=== PATIENT | female | born 1985 | race Caucasian/White ===

== ENCOUNTER 2019-06-06 15:55 | Emergency (ER) | payer OTHER ==
[2019-06-06 16:08] VITALS: BP 125/76
--- NOTE | 2019-06-06 16:26 | UC ---
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 She woke this morning feeling short of breath. During the course of her day her dyspnea increased to the point of having trouble speaking to her clients. She felt as though her heart was racing and she checked her pulse. Her pulse was around 140. She estimates it stayed this high for at least 2 hours. She is feeling better now that she is here. She denies any chest pain. She denies any calf pain. She denies any syncope or near syncope. - History of Current Complaint Chief Complaint: UCChestPain Stated Complaint: FAST HEART RATE Time Seen by Provider: 06/06/19 15:59 Hx Obtained From: Patient Onset/Duration: Gradual Onset, Lasting Hours Timing: Constant Current Severity: Mild Dyspnea At: Exertion Aggravating Factors: Nothing Associated Signs & Symptoms: Positive: Edema - sligh, Other - [place] shortly side palipitations/increased HR. Negative: Cough (Productive), Cough ( Nonproductive), Cough (Bloody Sputum), Wheezing, Chest Pain w/Cough, Chest Pain Unrelated to Cough, Fever, Chills, Diaphoresis, Nasal Congestion, Dizzy, Calf Pain/Swelling - Risk Factors Pulmonary Embolism: - Allergy/Home Medications Allergies/Adverse Reactions: Allergies Allergy/AdvReac Type Severity Reaction Status Date / Time No Known Allergies Allergy Verified 06/06/19 16:00 Home Medications: Home Medications Pnv No.95/Ferrous Fum/Folic AC [ Caplet] 1 tab PO DAILY 06/06/19 [ History Confirmed 06/06/19] PMH/Surg Hx/FS Hx/Imm Hx Previously Healthy: Yes - Surgical History Surgical History: None - Family History Known Family History: Positive: Non-Contributory - Social History Alcohol Use: None Substance Use Type: Marijuana Substance Use Comment - Amount & Last Used: States she has not smoke in past 5 days Smoking Status (MU): Light Every Day Tobacco Smoker Review of Systems All Other Systems Reviewed And Are Negative: Yes Constitutional: Positive: Negative Skin: Positive: Negative Eyes: Positive: Negative ENT: Positive: Negative Respiratory: Positive: Shortness Of Breath Cardiovascular: Positive: Palpitations Gastrointestinal: Positive: Negative Genitourinary: Positive: Negative Motor: Positive: Negative Neurovascular: Positive: Negative Musculoskeletal: Positive: Negative Neurological: Positive: Negative Psychological: Positive: Negative Physical Exam Triage Information Reviewed: Yes Appearance: Well-Appearing, No Pain Distress, Well-Nourished Vital Signs: Initial Vital Signs Temp 97.5 F 06/06/19 16:02 Pulse 106 06/06/19 16:02 Resp 18 06/06/19 16:02 BP 125/76 06/06/19 16:02 Pulse Ox 97 06/06/19 16:02 Vital Signs Reviewed: Yes Eye Exam: Normal Eyes: Positive: Conjunctiva Clear ENT: Positive: Hearing grossly normal, Uvula midline. Negative: Nasal congestion, Nasal drainage, Trismus, Hoarse voice Dental Exam: Normal Neck: Positive: Supple, Nontender Respiratory: Positive: Lungs clear, Normal breath sounds, No respiratory distress, No accessory muscle use, Other: - sligh increased WOB Cardiovascular: Positive: RRR, No Murmur, Tachycardia Abdomen Description: Positive: Other: - Gravid uterus Musculoskeletal: Positive: Edema @ - tr pre tibial Neurological: Positive: Alert Psychological Exam: Normal Skin Exam: Normal Diagnostics - EKG Cardiac Rate: Tachycardia Cardiac Rhythm: Sinus: Normal ST Segment: Normal Shortness of Breath Dx - Course Course Of Treatment: report given to Dr. Betancourt to [facility] [place] [facility] via EMS - Differential Dx/Diagnosis Provider Diagnosis: Sinus tachycardia, Dyspnea Discharge ED - Sign-Out/Discharge Documenting (check all that apply): Patient Departure All imaging exams completed and their final reports reviewed: No Studies - Discharge Plan Condition: Stable Disposition: TRANS HIGHER LVL OF CARE FAC Referrals: No Primary Care Phys,NOPCP [Primary Care Provider] - - Billing Disposition and Condition Condition: STABLE Disposition: Trans Higher Lvl of Care Fac
== END 2019-06-06 16:35 | disposition short-term general hospital (02) ==
LOC: UCEAST 15:55
DX: O99.89 Other specified diseases and conditions complicating pregnancy, childbirth and the puerperium (principal); F17.290 Nicotine dependence, other tobacco product, uncomplicated; R06.02 Shortness of breath; R00.0 Tachycardia, unspecified; R06.00 Dyspnea, unspecified; Z3A.35 35 weeks gestation of pregnancy
CPT/HCPCS: 93005; 99213; G0463

== ENCOUNTER 2019-06-06 17:00 | Emergency (ER) | payer OTHER ==
[2019-06-06 17:46] LABS: ABS Basophils 0.1 10^3/ul (0-0.2); ABS Eosinophils 0.1 10^3/ul (0-0.6); ABS Lymphocytes 2.8 10^3/ul (1.0-4.8); ABS Neutrophils 12.3 10^3/ul (1.5-7.7); Eosinophil % 0.9 %; Hematocrit 33 % (35-47); Hemoglobin 11.5 g/dL (12.0-16.0); Mean Corpuscular HGB Conc 35 g/dL (31-36); Mean Corpuscular Hemoglobin 33 pg (27-31); Mean Corpuscular Volume 92 fL (80-97); Mean Platelet Volume 7.7 fL (7.4-10.4); Platelet Count 235 10^3/uL (150-450); Red Blood Count 3.52 10^6 /uL (3.70-4.87); Red Cell Distribution Width 13 % (10-15); White Blood Count 16.3 10^3/uL (3.5-10.8)
[2019-06-06 18:01] LABS: INR 0.99 (0.82-1.09)
[2019-06-06 18:10] LABS: Albumin 3.3 g/dL (3.2-5.2); Albumin/Globulin Ratio 1.3 (1-3); BUN/Creatinine Ratio 18.8 (8-20); Calcium 8.8 mg/dL (8.6-10.3); EGFR African American 180.2 (>60); EGFR Non-African American 148.9 (>60); Globulin 2.5 g/dL (2-4); Potassium 3.4 mmol/L (3.5-5.0); Total Bilirubin 0.3 mg/dL (0.2-1.0); Total Protein 5.8 g/dL (6.4-8.9)
[2019-06-06 18:12] LABS: Troponin I 0.01 ng/mL (<0.04)
[2019-06-06] MEDS ORDERED: Iohexol 350* (CONTRAST) 500 ML MDV IV ONE (18:50)
--- NOTE | 2019-06-06 19:56 | ED ---
Shortness of Breath - HPI Summary HPI Summary: 33 year old female reports to the ED by EMS with a chief complaint of shortness of breath starting when she woke up this morning at 0800. She is 35 weeks in her 3rd . Reports fast heart rate, difficulty sleeping, heaviness in limbs, and chronically sore calves. She denies any pain, trauma to her chest, nausea, vomiting, or vaginal bleeding. No PSHx. Smokes marijuana, but has not smoked in 4 days. Smokes tobacco. Medications reviewed. Allergies noted. - History of Current Complaint Chief Complaint: EDShortnessOfBreath Time Seen by Provider: 06/06/19 17:10 Hx Obtained From: Patient Onset/Duration: Sudden Onset, Lasting Hours, Worse Since - woke up this morning Timing: Constant Current Severity: Moderate Dyspnea At: Exertion Aggravating Factors: Movement - Allergy/Home Medications Allergies/Adverse Reactions: Allergies Allergy/AdvReac Type Severity Reaction Status Date / Time No Known Allergies Allergy Verified 06/06/19 16:00 PMH/Surg Hx/FS Hx/Imm Hx Endocrine/Hematology History: Denies: Hx Diabetes Cardiovascular History: Denies: Hx Hypertension History: Denies: Hx Renal Disease Infectious Disease History: No Infectious Disease History: Denies: Traveled Outside the [place] in Last 30 Days - Family History Known Family History: Positive: Non-Contributory - Social History Alcohol Use: None Substance Use Type: Reports: Marijuana Substance Use Comment - Amount & Last Used: weekly use Smoking Status (MU): Light Every Day Tobacco Smoker Review of Systems Positive: Other - tachycardia Positive: Shortness Of Breath Negative: Vomiting, Nausea Negative: other - vaginal bleeding Positive: Other - extremities feel heavy Neurological: Other - difficulty sleeping All Other Systems Reviewed And Are Negative: Yes Physical Exam - Summary Physical Exam Summary: Constitutional: Well-developed, Well-nourished, Alert. . (-) Distressed Skin: Warm, Dry HENT: Normocephalic; Atraumatic Eyes: Conjunctiva normal Neck: Musculoskeletal ROM normal neck. (-) JVD, (-) Stridor, (-) Tracheal deviation Cardio: Rhythm regular, rate normal, Heart sounds normal; Intact distal pulses; Radial pulses are 2+ and symmetric. (-) Murmur Pulmonary/Chest wall: Effort normal. (-) Respiratory distress, (-) Wheezes, (-) Rales Abd: Soft, (-) tenderness, (-) Distension, (-) Guarding, (-) Rebound Musculoskeletal: (-) Edema Lymph: (-) Cervical adenopathy Neuro: Alert, Oriented x3 Psych: Mood and affect Normal Triage Information Reviewed: Yes Vital Signs On Initial Exam: Initial Vitals Temp Pulse Resp BP Pulse Ox 98.7 F 125 16 129/90 99 06/06/19 17:05 06/06/19 17:05 06/06/19 17:05 06/06/19 17:05 06/06/19 17:05 Vital Signs Reviewed: Yes Procedures - Sedation Patient Received Moderate/Deep Sedation with Procedure: No Diagnostics - Vital Signs Vital Signs Temp Pulse Resp BP Pulse Ox 06/06/19 19:07 91 13 99 06/06/19 18:36 94 19 118/63 97 06/06/19 18:06 92 16 117/64 98 06/06/19 18:00 93 24 99 06/06/19 17:36 103 20 108/66 98 06/06/19 17:18 112 21 97 06/06/19 17:06 108 23 129/90 97 06/06/19 17:05 98.7 F 125 16 129/90 99 - Laboratory Lab Results: Lab Results 06/06/19 06/06/19 06/06/19 Range/Units 17:34 17:34 17:34 WBC 16.3 H (3.5-10.8) 10^3/uL RBC 3.52 L (3.70-4.87) 10^6 /uL Hgb 11.5 L (12.0-16.0) g/dL Hct 33 L (35-47) % MCV 92 (80-97) fL MCH 33 H (27-31) pg MCHC 35 (31-36) g/dL RDW 13 (10-15) % Plt Count 235 (150-450) 10^3/uL MPV 7.7 (7.4-10.4) fL Neut % (Auto) 75.5 % Lymph % (Auto) 17.0 % Moca % (Auto) 6.1 % Eos % (Auto) 0.9 % Baso % (Auto) 0.5 % Absolute Neuts (auto) 12.3 H (1.5-7.7) 10^3/ul Absolute Lymphs (auto) 2.8 (1.0-4.8) 10^3/ul Absolute Monos (auto) 1.0 H (0-0.8) 10^3/ul Absolute Eos (auto) 0.1 (0-0.6) 10^3/ul Absolute Basos (auto) 0.1 (0-0.2) 10^3/ul Absolute Nucleated RBC 0.0 10^3/ul Nucleated RBC % 0.0 INR (Anticoag Therapy) 0.99 (0.82-1.09) D-Dimer, Quantitative (Less Than 230) ng/mL Sodium 135 (135-145) mmol/L Potassium 3.4 L (3.5-5.0) mmol/L Chloride 106 (101-111) mmol/L Carbon Dioxide 21 L (22-32) mmol/L Anion Gap 8 (2-11) mmol/L BUN 9 (6-24) mg/dL Creatinine 0.48 L (0.51-0.95) mg/dL Est GFR ( Amer) 180.2 (>60) Est GFR (Non-Af Amer) 148.9 (>60) BUN/Creatinine Ratio 18.8 (8-20) Glucose 101 H (70-100) mg/dL Calcium 8.8 (8.6-10.3) mg/dL Total Bilirubin 0.30 (0.2-1.0) mg/dL AST 17 (13-39) U/L ALT 13 (7-52) U/L Alkaline Phosphatase 140 H (34-104) U/L Troponin I 0.01 (<0.04) ng/mL Total Protein 5.8 L (6.4-8.9) g/dL Albumin 3.3 (3.2-5.2) g/dL Globulin 2.5 (2-4) g/dL Albumin/Globulin Ratio 1.3 (1-3) 06/06/ Range/Units 17:34 WBC (3.5-10.8) 10^3/uL RBC (3.70-4.87) 10^6 /uL Hgb (12.0-16.0) g/dL Hct (35-47) % MCV (80-97) fL MCH (27-31) pg MCHC (31-36) g/dL RDW (10-15) % Plt Count (150-450) 10^3/uL MPV (7.4-10.4) fL Neut % (Auto) % Lymph % (Auto) % Moca % (Auto) % Eos % (Auto) % Baso % (Auto) % Absolute Neuts (auto) (1.5-7.7) 10^3/ul Absolute Lymphs (auto) (1.0-4.8) 10^3/ul Absolute Monos (auto) (0-0.8) 10^3/ul Absolute Eos (auto) (0-0.6) 10^3/ul Absolute Basos (auto) (0-0.2) 10^3/ul Absolute Nucleated RBC 10^3/ul Nucleated RBC % INR (Anticoag Therapy) (0.82-1.09) D-Dimer, Quantitative 291 H (Less Than 230) ng/mL Sodium (135-145) mmol/L Potassium (3.5-5.0) mmol/L Chloride (101-111) mmol/L Carbon Dioxide (22-32) mmol/L Anion Gap (2-11) mmol/L BUN (6-24) mg/dL Creatinine (0.51-0.95) mg/dL Est GFR ( Amer) (>60) Est GFR (Non-Af Amer) (>60) BUN/Creatinine Ratio (8-20) Glucose (70-100) mg/dL Calcium (8.6-10.3) mg/dL Total Bilirubin (0.2-1.0) mg/dL AST (13-39) U/L ALT (7-52) U/L Alkaline Phosphatase (34-104) U/L Troponin I (<0.04) ng/mL Total Protein (6.4-8.9) g/dL Albumin (3.2-5.2) g/dL Globulin (2-4) g/dL Albumin/Globulin Ratio (1-3) Result Diagrams: 06/06/19 17:34 06/06/19 17:34 Lab Statement: Any lab studies that have been ordered have been reviewed, and results considered in the medical decision making process. - CT Chest/ Thorax CTA CT Interpretation Completed By: Radiologist Summary of CT Findings: No evidence of PE or other acute chest pathology. An ED physician has reviewed this report. Course/Dx - Course Course Of Treatment: Patient is here with shortness of breath and tachycardia that started this morning. Patient's symptoms are severe enough that she cannot manage her work today. Patient was tachycardic at work, at urgent care, and upon arrival here. Patient is very high risk for PE given her status. Patient had no evidence of DVT on exam. [facility] was called and they recommended CTA if our suspicion was high enough which it was. Patient had a CTA which showed no PE. Patient was encouraged to follow-up with her [facility] [employer]. - Diagnoses Provider Diagnoses: Shortness of breath, , Tachycardia Discharge ED - Sign-Out/Discharge Documenting (check all that apply): Patient Departure - dc - Discharge Plan Condition: Stable Disposition: HOME Patient Education Materials: (ED), Tachycardia (ED), Shortness of Breath (ED) Referrals: [facility] [Outside] Additional Instructions: Ct shows that you dont have a blood clot in your lungs. Return if you have chest pain, increased shortness of breath, or other worsened symptoms. Follow up with your [facility] in 1-3 days. - Billing Disposition and Condition Condition: STABLE Disposition: Home - Attestation Statements Document Initiated by Fanyibe: Yes Documenting Scribe: Zacarias Ford Provider For Whom Vishal is Documenting (Include Credential): Antonio Betancourt MD. Scribe Attestation: Zacarias Iniguez scribed for Antonio Betancourt MD. on 06/06/19 at 2106. Scribe Documentation Reviewed: Yes Provider Attestation: The documentation as recorded by the Zacarias hightower accurately reflects the service I personally performed and the decisions made by Antonio carranza MD. Status of Scribe Document: Viewed
[2019-06-06 21:11] VITALS: BP 121/78
== END 2019-06-06 20:55 | disposition home or self-care (01) ==
LOC: ED 17:00
DX: O26.893 Other specified pregnancy related conditions, third trimester (principal); R06.02 Shortness of breath; R00.0 Tachycardia, unspecified; O99.333 Smoking (tobacco) complicating pregnancy, third trimester; F17.290 Nicotine dependence, other tobacco product, uncomplicated; Z3A.35 35 weeks gestation of pregnancy
CPT/HCPCS: 36415; 71275; 80053; 84484; 85025; 85379; 85610; 99282; Q9967

== ENCOUNTER 2019-07-15 14:06 | Inpatient (IN) | payer OTHER ==
[2019-07-15] MEDS ORDERED: Lactated Ringers 1000 ML Bag* 1,000 ML IV ONE (15:30)
[2019-07-15] MEDS ORDERED: Buffered Lidocaine 1% SYRIN* 1 ML/SYRINGE INTRADERM ONE (15:30)
--- NOTE | 2019-07-15 15:41 | HP ---
General Information - Reason for Visit 33yo, , IUP@40+1, here for an elective induction - General Information Maternal Age: 33 Grav: 5 Para: 2 SAB: 0 IEA: 2 Estimated Due Date: 07/14/19 Determined By: LMP Gestational Age in Weeks/Days: 40+1 Maternal Blood Type and Rh: A Positive - Results this Serology/RPR Result: Non-Reactive Rubella Result: Immune HBsAg Result: Negative HIV Result: Negative GBS Culture Result: Negative Past Medical History Delivery History: Hx Uncomplicated Vaginal Delivery Past Medical History Comment: hypercholesterolemia Pertinent Past Surgical History: None Family History Comment: Mother: thyroid disease PGF: MS, CHF MGF: d/t pancreatic cancer - Antepartal Records Antepartal Records: Reviewed, Complicated by: - SS increased risk of T21, normal NIPT; +tobacco use; +thc use Review of Systems Constitutional: Comfortable CV Complaint: No Respiratory: Shortness of Breath: No Gastrointestinal: No Nausea/Vomiting, Normal Bowel Movement Genitourinary: No Dysuria, No Bleeding, No Leaking Fluid Musculoskeletal: No Complaint, No Epigastric Pain, Contractions Neurological: No Headache, No Visual Changes Movement: Normal Exam Allergies/Adverse Reactions: Allergies No Known Allergies Allergy (Verified 07/15/19 15:41) temp 97.8, HR 105, RR 18, BP 132/74, O2 99 - Exam Breast: Breast Exam Deferred CVA: No CVA Tenderness Extremities: No Edema Heart: Normal Rhythm/Heart Sounds HEENT: No Significant Findings Lungs: Clear Bilaterally Rectal: Rectal Exam Deferred Reflexes: DTR 2+ - Abdominal Exam Abdomen Exam: Non-Tender - Ultrasound/Biophysical Profile Ultrasound Status: Not Done Targeted Exam Findings Estimated Weight: 8.5lbs Cervical Exam: Fingertip Effacement: <50% Station: -2 Presenting Part: Vertex Membrane Status: Intact Bleeding/Discharge: None EFM Findings - External Monitor Findings Baseline Heart Rate: 150 External Monitor Findings: Accelerations Present, No Pattern of Variable or Late Decelerations, Variability Moderate, Accelerations Absent External Monitor Findings Comment: No evidence of metabolic acidemia Contractions: Irregular Assessment/Plan - Assessment 33yo, , IUP@40+1 here for an elective induction GBS negative, A+ Last in 2007 No evidence of metabolic acidemia Occasional contraction, good resting tone PARQ discussion about cytotec for cervical ripening - Plan Plan: Induction, Cervical Ripening, Admit - Anticipate Vaginal Delivery Plan Comment: First dose of cytotec now monitoring per protocol pain meds prn anticipate progression to active labor - Date/Time of Admission Date of Admission: 07/15/19 Time of Admission: 14:00
[2019-07-15] MEDS: Misoprostol TAB* 100 MCG PO SCH (15:57)
[2019-07-15] MEDS ORDERED: Lactated Ringers 1000 ML Bag* 1,000 ML IV SCH (16:00)
[2019-07-15 18:52] LABS: Urine Benzodiazepine Screen None Detected (None Detect); Urine Opiates Screen None Detected (None Detect)
--- NOTE | 2019-07-15 20:06 | PN ---
Progress Note - Progress Note Date of Service: 07/15/19 Note: S: pt is resting in bed, breathing through contractions. O: 136/78, HR 79, temp 98 FHR 130, variable decels, moderate variability Contractions q2-3 mins VE: 2/50/-1, AROM, clear fluid A: IUP@40+1 in early labor No evidence of metabolic acidemia Regular contractions P: PARQ discussion about AROM, pt and in agreement with plan. Anticipate progression to active labor and
--- NOTE | 2019-07-16 00:19 | PN ---
Progress Note - Progress Note Date of Service: 07/16/19 Note: S: pt is resting in bed, breathing through contractions. using nitrous oxide. O: FHR 130, variable decels, moderate variability Contractions q2-3 mins VE: 4.5/80/-1, clear fluid A: IUP@40+1 in early labor No evidence of metabolic acidemia Regular contractions P: Pt to get in tub, coping well anticipate
--- NOTE | 2019-07-16 01:27 | PN ---
Progress Note - Progress Note Date of Service: 07/16/19 Note: pt is writhing in bed with contractions. requesting an epidural. contractions q2 mins, good resting tone VE: 6/100/-1, clear fluid RN to start IV/fluids anticipate progression to
[2019-07-16 01:44] LABS: ABS Basophils 0.1 10^3/ul (0-0.2); ABS Eosinophils 0.2 10^3/ul (0-0.6); ABS Lymphocytes 3.3 10^3/ul (1.0-4.8); ABS Monocytes 1.5 10^3/ul (0-0.8); Eosinophil % 0.8 %; Hematocrit 34 % (35-47); Hemoglobin 11.9 g/dL (12.0-16.0); Lymphocyte % 15.1 %; Mean Corpuscular HGB Conc 35 g/dL (31-36); Mean Corpuscular Hemoglobin 32 pg (27-31); Mean Corpuscular Volume 92 fL (80-97); Mean Platelet Volume 8.1 fL (7.4-10.4); Platelet Count 240 10^3/uL (150-450); Red Cell Distribution Width 14 % (10-15)
[2019-07-16] MEDS ORDERED: OBEPIDURAL* 250 ML EPIDURAL ONE (01:45)
[2019-07-16] MEDS ORDERED: Bupivacaine 0.25% SDV PF* 10 ML VIAL INJ ONE ×2 (02:07→08:33)
--- NOTE | 2019-07-16 02:10 | PN ---
Progress Note - Progress Note Date of Service: 07/16/19 Note: pt is writhing in bed with contractions. contractions q2 mins, good resting tone VE: 7/100/-1, clear fluid RN to start IV/fluids Anesthesia at bedside
[2019-07-16] MEDS ORDERED: Phenylephrine 40 MCG/ML SYRINGE IV PUSH PRN ×2 (02:39)
[2019-07-16] MEDS ORDERED: Lactated Ringers 1000 ML Bag* 1,000 ML IV ONE (02:39)
[2019-07-16] MEDS ORDERED: Sodium Citrate/Citric Acid* 15 ML UDC PO PRN (02:39)
[2019-07-16] MEDS ORDERED: Famotidine TAB* 20 MG PO PRN (02:39)
[2019-07-16] MEDS ORDERED: Lactated Ringers 1000 ML Bag* 1,000 ML IV SCH ×2 (03:00→15:00)
[2019-07-16] MEDS ORDERED: OBEPIDURAL* 250 ML EPIDURAL SCH (03:00)
--- NOTE | 2019-07-16 03:16 | PN ---
Progress Note - Progress Note Date of Service: 07/16/19 Note: Pt comfortable with epidural. Called to bedside by RN for decel. Anesthesia also at bedside. FHR auscultated in 90s, FSE placed. Phenylephrine given for low BP following epidural. BP stabilized. VE: 7.5/90/0, vtx L. MD Milady called Early decels persist with contractions despite position changes, O2, and fluids. Full recovery of FHR following contraction with moderate variability. Low suspicion for acidemia at this time. Will monitor closely. inhouse, reviewed strip, aware of pt condition
[2019-07-16] MEDS ORDERED: Terbutaline INJ* 1 MG/ML VIAL SUBCUT ONE (03:21)
[2019-07-16] MEDS ORDERED: Terbutaline INJ* 1 MG/ML VIAL ONE (03:22)
--- NOTE | 2019-07-16 04:34 | PN ---
Progress Note - Progress Note Date of Service: 07/16/19 Note: Pt comfortable with epidural. Feeling more pressure with contractions. VE: 8/90/0, vtx, swollen anterior cervix Will place pt in runner's lunge FHR 125, moderate variability, early decels Early decels persist with contractions despite position changes, O2, and fluids. Full recovery of FHR following contraction with moderate variability. Low suspicion for acidemia at this time. Will monitor closely. MD GRAHAM aware.
--- NOTE | 2019-07-16 06:54 | PN ---
Progress Note - Progress Note Date of Service: 07/16/19 Note: S: pt is resting in bed, now using epidural dose button for complete pain relief. Feeling pressure with contractions. O: BP 103/73, HR 109, temp 99.7 FHR 130, moderate variability, +accels, occasional early decel Contractions q3-4 mins VE: 8.5/90/0, thin meconium, swelling of anterior rim of cervix A: IUP@40+1 in active labor VSS No evidence of metabolic acidemia - FSE in place Small cervical change Regular contractions P: Positioned in left runners lunge. Position changes every 15-20 minutes. After runners lunge consider side-lying release Anticipate progression to Report given to Chuckie Pina CNM who will assume care at 0800.
[2019-07-16] MEDS ORDERED: diPHENhydraMINE IV* 50 MG/ML 1 ml VIAL (BENADRYL) IV ONE (08:30)
--- NOTE | 2019-07-16 08:31 | PN ---
Progress Note - Progress Note Date of Service: 07/16/19 Note: S: Rocking back in forth on the bed in side-lying position Feeling exhausted. Vocalizing with UCs. Reports more pain with contractions O: B/P: 129/90, P: 107, R: 20, T: 99.0 FHR: Baseline 125, moderate variability, some early decels, some deep variable decels with UCs UCs: q 3-5 min, moderate to palpation VE: 9 cm, swollen anterior lip. Blood-tinged fluid Epidural tubing has come apart on inspection A: IUP at 40 2/7 weeks Category II FHR, doubt metabolic acidemia in presence of moderate variability. Dr. Salomon in house and aware Prolonged active phase of labor P: PARQ discussion re: IV benadryl and possibly ice against the cervix. Dr. Sandoval paged; somebody will be down to assess epidural Encouraged hands-knees positioning Reassess in one hour or sooner PRN Anticipate SVB
[2019-07-16] MEDS ORDERED: Oxytocin in LR* 20 UNITS/1,000 ML BAG IVPB SCH ×2 (10:30→15:00)
--- NOTE | 2019-07-16 10:30 | PN ---
Progress Note - Progress Note Date of Service: 07/16/19 Note: Feeling more comfortable now that epidural has been re-attached. O: B/P: 122/70, P: 89, R: 20, T: 98.5 FHR: baseline 135, moderate variability, variable decelerations with UCs UCs: q4 min, moderate to palpation VE: unchanged from previous exam - 8.5-9/thick anterior lip A: IUP at 40 2/7 weeks Category II FHR, Dr. Salomon updated Inadequate labor progress P: PARQ discussion re: low-dose pitocin; pt and agree Discussed minimal change lead last several hours, concerns about tolerance of labor over time Reviewed possibility of if labor does not progress; she is accepting if necessary but prefers to avoid if at all possible Reassess in 1-2 hrs or sooner as needed
--- NOTE | 2019-07-16 12:31 | PN ---
Progress Note - Progress Note Date of Service: 07/16/19 Note: Feeling more rectal pressure with UCs. Still comfortable with epidural O: FHR: baseline 135, moderate variability, +accelerations, variable decels with contractions, one prolonged decel, resolved with position change UCs: q 2-4 min, moderate to palpation VE: 9 cm, cervix anterior and to maternal left. Slight change from last exam. Vertex better applied to cervix. MSAF Pitocin at 2 mu/min A: IUP at 40 2/7 weeks Category II FHR, doubt metabolic acidemia Prolonged active phase of labor P: Discussed titrating pitocin to 4 mu/min. Will further assess contraction pattern for another 15-25 mins to avoid tachysytole Encouraged continuing position changes to promote labor progress Reassess in 1 hr or sooner PRN. Anticipate SVB
[2019-07-16] MEDS ORDERED: Ondansetron INJ* 2 MG/ML VIAL IV ONE (13:00)
[2019-07-16] MEDS ORDERED: ceFOXitin 2 GM IVPREMIX* 2 GM/50 ML BAG ONE (13:00)
--- NOTE | 2019-07-16 13:04 | PN ---
Progress Note - Progress Note Date of Service: 07/16/19 Note: Called to bedside, baby with baseline in 150s and recurrent deep variable decelerations, less variability than before. Geovanna reports more nausea, feeling somewhat sick O: FHR: 155, minimal to moderate variability, no accelerations, recurrent variable decelerations UCs: q3-5 min VE: unchanged. MSAF. Pitocin at 2 mu/min A: IUP at 40 2/7 weeks Prolonged active phase of labor, inadequate descent P: Consult with SAG at bedside, recommend at this time. Pt and agree to proceed IV zofran for nausea.
[2019-07-16] MEDS ORDERED: Morphine PF AMP (0.5MG/ML)* 5 MG/10 ML AMP ONE (13:28)
[2019-07-16] MEDS ORDERED: Carboprost Tromethamine* 250 MCG INJ ONE (13:39)
[2019-07-16] MEDS ORDERED: Lidocaine 2% w/ EPI 1:200,000* 20 ML SDV VIAL ONE (13:48)
[2019-07-16] MEDS ORDERED: Sodium Bicarbonate 8.4% IV* 50 ML VIAL ONE (13:48)
[2019-07-16] MEDS ORDERED: OXYTOCIN* 10 UNITS/ML 1 ML VIAL ONE (13:48)
[2019-07-16] MEDS ORDERED: Phenylephrine 40 MCG/ML SYRINGE ONE ×2 (13:49→14:25)
[2019-07-16] MEDS ORDERED: Misoprostol TAB* 200 MCG ONE ×2 (14:34→14:49)
[2019-07-16] MEDS ORDERED: Ibuprofen TAB* 600 MG PO PRN (14:34)
[2019-07-16] MEDS ORDERED: Zolpidem TAB* 5 MG PO PRN (14:34)
[2019-07-16] MEDS ORDERED: Dibucaine 1% 28.35 GM TUBE PR PRN (14:34)
[2019-07-16] MEDS ORDERED: Glycerin ADULT SUPP PR PRN (14:34)
[2019-07-16] MEDS ORDERED: Witch Hazel PAD* JAR TOPICAL PRN (14:34)
[2019-07-16] MEDS ORDERED: oxyCODONE/Acetamin 5/325 MG* TAB PO PRN (14:56)
[2019-07-16] MEDS ORDERED: Nalbuphine* 10 MG/ML 1 ML VIAL IV PRN (14:56)
[2019-07-16] MEDS ORDERED: Naloxone* 0.4 MG/ML 1 ML VIAL IV PRN (14:56)
[2019-07-16] MEDS ORDERED: Ondansetron INJ* 2 MG/ML VIAL IV PRN (14:56)
[2019-07-16] MEDS: Misoprostol TAB* 100 MCG PO SCH ×2 (16:25→16:27)
[2019-07-16] MEDS: Ketorolac INJ* 30 MG/ML 1 ML VIAL IV PRN ×2 (16:40→22:37)
[2019-07-16] MEDS: Simethicone TAB* 80 MG TAB.CHEW PO SCH ×2 (17:58→21:06)
[2019-07-16] MEDS: Docusate CAP* 100 MG PO SCH (21:06)
--- NOTE | 2019-07-16 21:51 | OP ---
DATE OF OPERATION: 07/16/19 - ROOM #102 DATE OF : 85 SURGEON: Luisito Salomon MD [employer] TRAINER: Jaylin Pina CNM ANESTHESIA: Epidural. PRE-OP DIAGNOSES: Category 2 tracing, remote from delivery, and arrest of descent. POST-OP DIAGNOSES: Category 2 tracing, remote from delivery, and arrest of descent, brow presentation. OPERATIVE PROCEDURE: Low transverse section. ESTIMATED BLOOD LOSS: 800 cc. FINDINGS: This is a 33-year-old 5, para 2, who presented at 40 weeks in labor. She began to have variable decels that were deep and in the middle of the night was given terbutaline with resolution. The patient tolerated this well. She progressed up to 8 to 9 cm and then arrested. Pitocin was started and she began to have multiple variable declarations with evidence of change in baseline up to 150 to 160 with Pitocin. Pitocin was stopped and she was examined. It was felt that the vertex was still out of the pelvis and that she was remote from being able to be delivered. At that time, the risks, benefits, alternatives, and indications of were discussed including the idea of bearing down and after discussion, the decision was made to proceed with . At the time , she had a viable male, Apgars were 8 and 9, weight was 8 pounds 4 ounces. Normal appearing uterus, fallopian tubes and ovaries. There was noted to be a brow presenting. DESCRIPTION OF PROCEDURE: The patient identified, procedure identified as a low transverse section. The patient was taken to the operating room, prepped and draped in the usual fashion in the left lateral recumbent position under epidural anesthesia. A Pfannenstiel incision was made in the abdomen, carried down through fat, fascia, and peritoneum. A bladder flap was created via sharp and blunt dissection. A transverse incision was made in the low uterine segment and extended laterally using blunt dissection. The above infant was delivered through the incision with ease. The cord was doubly clamped and cut and the infant was handed to the awaiting x ray developing machine operator. Cord blood was obtained. Placenta delivered spontaneously. The uterus was wiped out with wet lap sponge. The uterine incision was then closed using 0 Polysorb in a running fashion. A second layer was used to imbricate the first layer. Good hemostasis was achieved using 0 Polysorb figure-of- eight sutures. Good hemostasis was verified. The uterus was placed back into the abdominal cavity. The gutters were wiped out with a wet lap sponge. Once good hemostasis had been established, the peritoneum was closed using 3-0 Vicryl in a running fashion. Good hemostasis achieved in the subrectus layers. The fascia was closed using 0 Polysorb in a running fashion. Good hemostasis achieved in the subcu. Copious irrigation was utilized and suctioned out and the skin was closed with 4-0 Monocryl in a subcuticular fashion. Mastisol and Steri-Strips were applied and the patient returned to the recovery room in stable condition. All sponge and instrument counts were correct. [id number]/[facility] #: [id number] TRIXIE
[2019-07-17] MEDS: Ketorolac INJ* 30 MG/ML 1 ML VIAL IV PRN ×2 (04:57→10:42)
[2019-07-17 06:36] LABS: Hematocrit 27 % (35-47); Hemoglobin 9.1 g/dL (12.0-16.0); Mean Corpuscular HGB Conc 34 g/dL (31-36); Mean Corpuscular Hemoglobin 32 pg (27-31); Mean Corpuscular Volume 94 fL (80-97); Mean Platelet Volume 8.1 fL (7.4-10.4); Platelet Count 196 10^3/uL (150-450); Red Blood Count 2.83 10^6 /uL (3.70-4.87); Red Cell Distribution Width 13 % (10-15); White Blood Count 23.8 10^3/uL (3.5-10.8)
[2019-07-17 06:39] LABS: ABS Eosinophils 0.1 10^3/ul (0-0.6); ABS Lymphocytes 1.8 10^3/ul (1.0-4.8); ABS Monocytes 1.3 10^3/ul (0-0.8); ABS Neutrophils 20.6 10^3/ul (1.5-7.7); Eosinophil % 0.3 %; Lymphocyte % 7.6 %
[2019-07-17] MEDS ORDERED: oxyCODONE/Acetamin 5/325 MG* TAB PO PRN (07:00)
[2019-07-17] MEDS: Docusate CAP* 100 MG PO SCH ×3 (09:13→19:55)
[2019-07-17] MEDS: Ferrous Gluconate TAB* 324 MG TAB PO SCH ×2 (09:13→19:55)
[2019-07-17] MEDS: Simethicone TAB* 80 MG TAB.CHEW PO SCH ×3 (09:13→19:55)
--- NOTE | 2019-07-17 13:01 | PN ---
Progress Note - Progress Note Date of Service: 07/17/19 Note: Post Progress Note S: 33 y/o POD#1 s/p pLTCS for Brow Presentation, doing well post op. Up and ambulating without difficulty. Tolerating regular diet, voiding spontaneously, pain well controlled. Bleeding minimal. O: AVSS, afebrile CV: RRR Pulm: CTABL Abd: soft, nd, nttp, fundus firm below the U Incision: bandage off, c/d/i with sutures and steris, no erythema, drainage or evidence of infection Ext: warm, nttp, trace edema A/P: 33 y/o Para 3 POD#1 s/p pLTCS for Brow presentation, doing well - AVSS, afebrile, hemodynamically stable - H/H .09/08 - on Po Fe, asymptomatic - Tolerating regular diet - pain well controllled - Voiding spontaneously - RH+/Rubella Immune - Continue routine post care DO PANKAJ Hawkins
[2019-07-17] MEDS: oxyCODONE/Acetamin 5/325 MG* TAB PO PRN ×2 (14:30→20:45)
[2019-07-17] MEDS ORDERED: Zolpidem TAB* 5 MG PO PRN (21:00)
[2019-07-17] MEDS: Ibuprofen TAB* 600 MG PO PRN (23:02)
[2019-07-18] MEDS: Ibuprofen TAB* 600 MG PO PRN ×3 (05:40→19:55)
[2019-07-18] MEDS: Simethicone TAB* 80 MG TAB.CHEW PO SCH ×5 (08:00→22:09)
[2019-07-18] MEDS: Ferrous Gluconate TAB* 324 MG TAB PO SCH ×2 (08:01→22:09)
[2019-07-18] MEDS: Docusate CAP* 100 MG PO SCH ×3 (08:01→22:09)
[2019-07-18] MEDS: oxyCODONE/Acetamin 5/325 MG* TAB PO PRN ×4 (08:13→22:08)
[2019-07-19] MEDS: Ibuprofen TAB* 600 MG PO PRN ×2 (03:05→08:59)
[2019-07-19] MEDS: oxyCODONE/Acetamin 5/325 MG* TAB PO PRN ×2 (03:05→08:24)
[2019-07-19 08:15] VITALS: BP 126/66
[2019-07-19] MEDS: Simethicone TAB* 80 MG TAB.CHEW PO SCH (08:25)
[2019-07-19] MEDS: Docusate CAP* 100 MG PO SCH (08:25)
[2019-07-19] MEDS: Ferrous Gluconate TAB* 324 MG TAB PO SCH (08:25)
== END 2019-07-19 12:40 | disposition home or self-care (01) | DRG 540 ==
LOC: MCHOBOUT 14:06 → MCHOB 15:31
PROVIDERS: ADMIT Advanced Practice Midwife; ATTEND Advanced Practice Midwife
PROC: 3E033VJ Introduction of Other Hormone into Peripheral Vein, Percutaneous Approach (ICD-10-PCS; 2019-07-16)
PROC: 10907ZC Drainage of Amniotic Fluid, Therapeutic from Products of Conception, Via Natural or Artificial Opening (ICD-10-PCS; 2019-07-16)
PROC: 10D00Z1 Extraction of Products of Conception, Low, Open Approach (ICD-10-PCS; principal; 2019-07-16 13:27)
DX: O48.0 Post-term pregnancy (principal); O99.334 Smoking (tobacco) complicating childbirth; O76 Abnormality in fetal heart rate and rhythm complicating labor and delivery; O32.3XX0 Maternal care for face, brow and chin presentation, not applicable or unspecified; O32.4XX0 Maternal care for high head at term, not applicable or unspecified; O77.0 Labor and delivery complicated by meconium in amniotic fluid; O90.81 Anemia of the puerperium; D64.9 Anemia, unspecified; Z3A.40 40 weeks gestation of pregnancy; Z37.0 Single live birth
CPT/HCPCS: 36415; 80307; 85025; 86850; 86900; 86901; A9270-GY; J0694; J1200; J1885; J2300; J2405; J2590; J3105; J3490; S0191